=== PATIENT | female | born 1970 | race Two or more races ===

== ENCOUNTER 2022-11-07 05:23 | Day surgery (SDC) | payer BC, OTHER ==
[2022-11-02 13:11] VITALS: BMI 29.2
[2022-11-07 09:14] VITALS: TEMP 98.5
[2022-11-07] MEDS ORDERED: PROPOFOL 20 ML ONE (13:02)
[2022-11-07] MEDS ORDERED: MIDAZOLAM HCL 2 MG/2 ML SINGLE DOSE VIAL ONE (13:02)
[2022-11-07] MEDS ORDERED: LIDOCAINE HCL 1%, 10 MG/ML (10ML VIAL) MDV ONE (13:04)
[2022-11-07] MEDS ORDERED: ceFAZolin SODIUM 1 GM VIAL IVPB ONE (13:15)
[2022-11-07] MEDS ORDERED: LIDOCAINE HCL 1%, 10 MG/ML (20ML VIAL) NR ONE (13:30)
[2022-11-07] MEDS ORDERED: ceFAZolin SODIUM 1 GM VIAL ONE (13:46)
[2022-11-07] MEDS ORDERED: DEXAMETHASONE SOD PHOSPHATE 4 MG/1 ML VIAL ONE (13:46)
[2022-11-07] MEDS ORDERED: ONDANSETRON 4 MG/2 ML VIAL ONE (13:46)
[2022-11-07] MEDS ORDERED: KETOROLAC TROMETHAMINE 30 MG/1 ML VIAL ONE (13:46)
[2022-11-07 15:45] VITALS: BP 100/58; PULSE 78; RESP 18
== END 2022-11-07 16:30 | disposition home or self-care (01) ==
LOC: JASU-SURG 05:23
PROVIDERS: ATTEND Surgery
PROC: 0HBT0ZZ Excision of Right Breast, Open Approach (ICD-10-PCS; principal; 2022-11-07 11:30)
DX: D17.9 Benign lipomatous neoplasm, unspecified (principal)
CPT/HCPCS: 81025; 88307-TC